=== PATIENT | female | born 1985 | race Hispanic/Latino ===

== ENCOUNTER 2019-02-13 22:00 | Emergency (ER) | payer BC ==
[~2019-02-13] VITALS: Ht 160 cm; Wt 74.8 kg
[2019-02-13] MEDS ORDERED: MECLIZINE HCL 12.5 MG TAB PO ONE (23:15)
--- NOTE | 2019-02-13 23:55 | Diagnostic Imaging Report ---
Exam: Head CT without contrast History: Nausea, vomiting, dizziness Comparison studies: None Technique: Axial images were obtained from the skull base to the vertex. Coronal and sagittal images reconstructed from the axial data. Dose modulation, iterative reconstruction, and/or weight based adjustment of the mA/kV was utilized to reduce the radiation dose to as low as reasonably achievable. Radiation dose: Total DLP: 921 mGy*cm. Estimated effective dose: DLP x 0.015 Intravenous contrast: None Findings: Scalp: No abnormalities. Bones: No fractures, blastic or lytic lesions. Brain sulci: Appropriate for age. Ventricles: Normal in size and configuration. No hydrocephalus. Extra-axial spaces: No masses, no fluid collection. Parenchyma: No abnormal densities. No masses, acute hemorrhage, acute or chronic vascular insults. Sellar/suprasellar region: No abnormalities. Craniocervical junction: Patent foramen magnum. No Chiari one malformation. Included paranasal sinuses: Mucosal thickening and nonspecific secretions in the right sphenoid sinus. Middle ear and included mastoids: Clear. Pneumatized petrous apices, a normal anatomical variant IMPRESSION: 1. No intracranial abnormalities. 2. Right sphenoid sinus sinusitis. Signed by: Dr. Alex Holman M.D. on 02/13/2019 11:51 PM
[2019-02-14] LABS: BILIRUBIN,URINE NEGATIVE (NEGATIVE); CLARITY,URINE CLOUDY (CLEAR); COLOR,URINE YELLOW (YELLOW); KETONES,URINE NEGATIVE (NEGATIVE); LEUKOCYTE ESTERASE ,URINE NEGATIVE (NEGATIVE); NITRITE,URINE NEGATIVE (NEGATIVE); PROTEIN,URINE DIPSTICK NEGATIVE (NEGATIVE); URINE UROBILINOGEN 0.2 mg/dL (0.2 - 1)
[2019-02-14 00:01] LABS: PREGNANCY TEST, URINE NEGATIVE (NEGATIVE)
[2019-02-14 00:55] LABS: BACTERIA,URINE MODERATE /HPF; EPITHELIAL CELLS,URINE MODERATE /LPF; RBC,URINE 0-5 /HPF (0-5); WBC,URINE (MAN) 0-5 /HPF (0-5)
--- OUTSIDE RECORDS SUMMARY | 2019-02-21 11:35 | XMS REPORT ---
Author Author [facility] Address Unknown Phone Unavailable Care Team Providers Care Furnace Repairer Name Role Phone Mela NEWBY Unavailable Unavailable Problems This patient has no known problems. Allergies, Adverse Reactions, Alerts This patient has no known allergies or adverse reactions. Medications This patient has no known medications. Results Test Description Test Time Test Comments Text Results Atomic Results Result Comments CT BRAIN WO 2019-02-13 23:48:00 [place] [address] Patient Name: BENJAMIN NG MR #: [id number] : 1985 Age/Sex: 33/F Req #: [id number] Adm Physician: Ordered by: NEHEMIAS NEWBY MD Report #: [id number] Location: ER Room/Bed: Procedure: [id number] CT/CT BRAIN WO Exam Date: Exam Time: REPORT STATUS: Signed Exam: Head CT without contrast History: Nausea, vomiting, dizziness Comparison studies: None Technique: Axial images were obtained from the skull base to the vertex. Coronal and sagittal images reconstructed from the axial data. Dose modulation, iterative reconstruction, and/or weight based adjustment of the mA/kV was utilized to reduce the radiation dose to as low as reasonably achievable. Radiation dose: Total DLP: 921 mGy*cm. Estimated effective dose: DLP x 0.015 Intravenous contrast: None Findings: Scalp: No abnormalities. Bones: No fractures, blastic or lytic lesions. Brain sulci: Appropriate for age. Ventricles: Normal in size and configuration. No hydrocephalus. Extra-axial spaces: No masses, no fluid collection. Parenchyma: No abnormal densities. No masses, acute hemorrhage, acute or chronic vascular insults. Sellar/suprasellar region: No abnormalities. Craniocervical junction: Patent foramen magnum. No Chiari one malformation. Included paranasal sinuses: Mucosal thickening and nonspecific secretions in the right sphenoid sinus. Middle ear and included mastoids: Clear. Pneumatized petrous apices, a normal anatomical variant IMPRESSION: 1. No intracranial abnormalities. 2. Right sphenoid sinus sinusitis. Signed by: Dr. Richard Holman M.D. on 02/13/2019 11:51 PM Dictated By: RICHARD HOLMAN MD 50 Transcribed By: YIN on 02/13/192350 COPY TO: NEHEMIAS NEWBY MD
== END 2019-02-14 00:34 | disposition home or self-care (01) ==
LOC: ER 22:00
DX: R42 Dizziness and giddiness (principal); R11.0 Nausea; R51 Headache; J01.30 Acute sphenoidal sinusitis, unspecified
CPT/HCPCS: 70450; 81001; 81025; 99283; J8597

== ENCOUNTER 2019-12-02 20:14 | Emergency (ER) | payer BC, OTHER ==
[~2019-12-02] VITALS: Ht 160 cm; Wt 74.8 kg
== END 2019-12-02 20:35 | disposition home or self-care (01) ==
LOC: FSED 20:30
DX: J06.9 Acute upper respiratory infection, unspecified (principal)
CPT/HCPCS: 99282

== ENCOUNTER → 2020-03-02 | Outpatient (CLI) | payer OTHER | LOC: VACCPMC 02:15 | DX: Z23 Encounter for immunization (principal); Z20.828 Contact with and (suspected) exposure to other viral communicable diseases ==

== ENCOUNTER → 2020-04-12 | Outpatient (CLI) | payer OTHER ==
[~2020-04-12] MED LIST: COVID-19 VACC, MRNA(MODERNA)/PF 100 MCG/0.5 ML VIAL IM ONE
== END | DRG 951 ==
LOC: LAB 10:47
DX: Z23 Encounter for immunization (principal); Z20.822 Contact with and (suspected) exposure to COVID-19
CPT/HCPCS: 0012A; 91301